=== PATIENT | male | born 1980 | race Caucasian/White ===

== ENCOUNTER 2017-10-19 16:46 | Emergency (ER) | payer MEDICARE, MEDICAID | END 2017-10-19 16:56 | disposition left against medical advice (07) | LOC: ER 16:53 | DX: M25.572 Pain in left ankle and joints of left foot (principal); M25.571 Pain in right ankle and joints of right foot; Z53.21 Procedure and treatment not carried out due to patient leaving prior to being seen by health care provider ==

== ENCOUNTER 2017-10-20 10:46 | Emergency (ER) | payer MEDICARE, MEDICAID ==
[~2017-10-20] VITALS: Ht 182.9 cm; Wt 77.1 kg
[2017-10-20 11:18] VITALS: BP 144/74
== END 2017-10-20 11:53 | disposition home or self-care (01) ==
LOC: ER 10:46
DX: S93.402A Sprain of unspecified ligament of left ankle, initial encounter (principal); S93.401A Sprain of unspecified ligament of right ankle, initial encounter; X50.9XXA Other and unspecified overexertion or strenuous movements or postures, initial encounter; Y93.89 Activity, other specified; Y99.8 Other external cause status; Y92.89 Other specified places as the place of occurrence of the external cause